=== PATIENT | male | born 1955 | race Caucasian/White ===

== ENCOUNTER 2023-06-01 17:21 | Observation (INO) | payer MEDICARE, SELFPAY ==
[2023-06-01] VITALS (16 sets, daily range): BP systolic 117–176; BP diastolic 74–105; PULSE 67–84; RESP 18–32; TEMP 36.4; O2SAT 89–98; BMI 25.8; BMI 26.8
--- NOTE | 2023-06-01 17:31 | ED.GENADUL1 ---
Documented by User: NEGRITO Ohara 06/01/23 20:20 HPI - General Adult General Chief complaint: Abdominal Pain Stated complaint: ABDOMINAL PAIN Time Seen by Provider: 06/01/23 17:27 Source: patient and friend History of Present Illness HPI narrative: Patient is a 67-year-old male who presents to the Emergency Room with concerns of severe abdominal pain.. patient reports history of bowel obstructions ?4 in the past, surgery with Dr. Montilla. States he developed abdominal pain last night around 8 PM, pain is been constant currently 10/10 with nausea. He denies vomiting, his last bowel movement today was 4:30pm denies blood or mucus. Patient appears weak. brought in by private car via his neighbor who initially took him to [place], but left before being seen after noting the wait at their Facility. Onset (ago): day(s) (1) Radiation: Reports abdomen Severity: severe Quality: Reports aching Pain Consistency: Reports constant Relieving factors: Reports none Exacerbating factors: Reports none Related Data Home Medications Medication Instructions Recorded Confirmed polyethylene glycol 3350 17 4 g PO DAILY 06/01/23 06/01/23 gram/dose oral powder (Gavilax) Allergies Allergy/AdvReac Type Severity Reaction Status Date / Time No Known Drug Allergies Allergy Verified 06/01/23 17:24 Review of Systems ROS Constitutional Denies: fever, chills or change in weight Eyes Denies: change in vision or blurry vision Ears, nose, mouth, and throat Denies: throat pain or neck pain Cardiovascular Denies: chest pain or palpitations Respiratory Denies: shortness of breath Gastrointestinal Reports: abdominal pain and nausea; Denies: vomiting or diarrhea Musculoskeletal Denies: back pain Integumentary/Breast Denies: rash Neurological Denies: headache Psychiatric Denies: anxiety Endocrine Denies: excessive urination [facility] Medical History (Updated 06/01/23 @ 23:49 by Neelam Mendiola RN) Surgical History Family History Brother Family history of myocardial infarction Sister Family history of stroke Social History Within the past year, how often did you have a drink containing alcohol: never Within the past year, how often did you have six or more drinks on one occasion: never Score interpretation: A score less than 4 is consistent with normal alcohol consumption. Smoking status: Never smoker Non-prescribed substance use: denies use Highest level of school completed/degree received: high school graduate Little interest or pleasure in doing things: not at all Feeling down, depressed, or hopeless: not at all Feel stressed/tense/nervous/anxious/difficulty sleeping: not at all Do you think of yourself as: straight/heterosexual Exam Narrative Exam Narrative: Nurses notes and vital signs reviewed and patient is not hypoxic. General: The patient appears in mild to moderate pain and with malaise Skin: Warm, dry, no pallor noted.no evidence of rash Head: Normocephalic, atraumatic Neck: Supple, trachea mid-line, no tenderness, no lymphadenopathy Eye: Pupils are equal, round and reactive to light, EOMI Ears, Nose, Mouth, and Throat: TM are clear, normal light reflex, oral mucosa is moist, no posterior oropharynx erythema or hypertrophy, uvula is mid-line Cardiovascular: Regular Rate and Rhythm Respiratory: Patient is in no distress, no accessory muscle use, lungs are clear to auscultation, no wheezing, rales or rhonchi. Chest Wall: no tenderness Back: non-tender, no CVA tenderness Musculoskeletal: normal ROM, no tenderness, no swelling GI: bowel sounds present but hypoactive, he has a midline abdominal incision with no palpable hernia, notable tenderness in the right lower and left lower quadrants. Slight guarding, no rebound. Neurological: A&O x4 Psychiatric: Cooperative Constitutional Vital Signs, click to edit/add: Last Vital Signs Temp 97.6 F 06/02/23 04:59 Pulse 56 L 06/02/23 04:59 Resp 18 06/02/23 04:59 BP 117/68 06/02/23 04:59 Pulse Ox 94 L 06/02/23 04:59 O2 Del Method Room Air 06/02/23 04:59 O2 Flow Rate 2 06/01/23 21:32 Course Vital Signs Vital signs: Vital Signs Temperature 97.6 F 06/01/23 17:25 Pulse Rate 84 06/01/23 17:25 Respiratory Rate 32 H 06/01/23 17:25 Blood Pressure 156/93 H 06/01/23 17:25 Pulse Oximetry 98 06/01/23 17:25 Oxygen Delivery Method Room Air 06/01/23 17:25 Temperature 97.6 F 06/02/23 04:59 Pulse Rate 56 L 06/02/23 04:59 Respiratory Rate 18 06/02/23 04:59 Blood Pressure 117/68 06/02/23 04:59 Pulse Oximetry 94 L 06/02/23 04:59 Oxygen Delivery Method Room Air 06/02/23 04:59 Oxygen Delivery Flow Rate 2 06/01/23 21:32 Medical Decision Making MDM Narrative Medical decision making narrative: patient presents with last history of bowel obstruction four years ago, prior surgeries. Patient notes pain and presentation of symptoms similar to prior episodes with severe pain lower abdomen currently 10/10 constant unrelenting. Positive nausea but no vomiting. Patient denies fever or chills. Discussed recommendation for CT of the abdomen and pelvis with IV and oral contrast and patientt agreeable. He'll be medicated for pain. patient reevaluated at seven twenty shortly after returning from CT. CT personally reviewed noted for dilated stomach, multiple air-fluid levels, discussed placement of NG tube patient agreeable, noted pain improved with initial IV pain medication but agreeable to a 0.5 mg dose of Dilaudid prior to NG tube placement. Pending CT report before contacting his general surgeon NG tube placement confirmed with chest x-ray, appears appropriate, intermittent suction nearly filled the wall container shortly after application. Patient noticing improvement in his symptoms. We discussed his presentation case and prior surgical history with Dr. Montilla who is familiar with the patient. is agreeable with admission for observation to his service. Patient only takes MiraLAX every other day. Previous surgical intervention was for a food bolus that was stuck in his intestine. Pt was thankful Lab Data Labs: Lab Results 06/01/23 Range/Units 17:25 WBC 9.9 (4.0-11.0) 10^3/uL RBC 5.56 (4.70-6.10) 10^6/uL Hgb 16.8 (14.0-18.0) g/dL Hct 49.2 (42.0-54.0) % MCV 88.5 (80.0-94.0) fL MCH 30.2 (25.9-34.0) pg MCHC 34.1 (29.9-35.2) g/dL RDW 13.0 (11.0-15.0) % Plt Count 376 (150-450) 10^3/uL MPV 8.8 L (9.5-13.5) fL Neut % (Auto) 74.4 (43.0-75.0) % Lymph % (Auto) 17.0 L (20.5-60.0) % Rankin % (Auto) 7.0 (1.7-12.0) % Eos % (Auto) 0.8 L (0.9-7.0) % Baso % (Auto) 0.4 (0.2-2.0) % Neut # (Auto) 7.4 H (1.4-6.5) 10^3/uL Lymph # (Auto) 1.7 (1.2-3.8) 10^3/uL Rankin # (Auto) 0.7 (0.3-0.8) 10^3/uL Eos # (Auto) 0.1 (0.0-0.7) 10^3/uL Baso # (Auto) 0.0 (0.0-0.1) 10^3/uL Abs Immat Gran (auto) 0.04 H (0.00-0.03) 10^3/uL Imm/Tot Granulo (auto) 0.4 (0.0-0.5) % Sodium 138 (136-145) mmol/L Potassium 3.8 (3.5-5.1) mmol/L Chloride 101 (98-107) mmol/L Carbon Dioxide 24.3 (21.0-32.0) mmol/L Anion Gap 16.5 BUN 15.0 (7.0-18.0) mg/dL Creatinine 1.37 H (0.70-1.30) mg/dL Est GFR ( Amer) >60 (>=60) Est GFR (Non-Af Amer) 52 L (>=60) BUN/Creatinine Ratio 10.9 Glucose 116 H (74-106) mg/dL Lactate 2.4 H* (0.4-2.0) mmol/L Calcium 9.6 (8.5-10.1) mg/dL Total Bilirubin 1.2 H (0.2-1.0) mg/dL AST 21 (15-37) U/L ALT 36 (16-63) U/L Alkaline Phosphatase 137 H (46-116) U/L Troponin I High Sens 7.9 (4.0-76.1) pg/mL Total Protein 9.0 H (6.4-8.2) g/dL Albumin 4.2 (3.4-5.0) g/dL Globulin 4.8 g/dL Albumin/Globulin Ratio 0.9 Lipase 62.0 L (73.0-393.0) U/L Imaging Data CT scan - abdomen: Radiologist's impression: Procedure: CT abdomen pelvis w con CT abdomen pelvis w con CLINICAL HISTORY: Lower abdominal pain starting last night. History of small bowel obstruction. Two bowel resections. COMPARISON: 12/15/2014. TECHNIQUE: Axial CT from lung bases through symphysis pubis following the injection of 100 mL of Omnipaque 300 iodinated contrast material. Oral contrast was administered. Coronal and sagittal reconstructions generated. Dose reduction techniques were achieved by using automated exposure control and/or adjustment of mA and/or kV according to patient size and/or use of iterative reconstruction technique. FINDINGS: CT ABDOMEN FINDINGS: Normal heart size. Lung bases chronic scarring, pleural plaques and calcifications overall minimally increased compared to 2015. No acute process seen. Liver with normal size and enhancement except for small chronic and unchanged triangular hypodensity in the posterior right hepatic lobe is similar to 2015, benign. Normal splenic size and enhancement. Normal-sized adrenal glands. Cholecystectomy with stable common duct size. Pancreas is unremarkable. Small nonobstructing left renal mid pole and right lower pole calculi. No obstructing stones or hydronephrosis. A few small scattered renal cysts. Atherosclerotic unfolded aorta without aneurysm. Stomach with relatively prominent air-fluid and contrast distention and up to moderate air fluid distention of the mid small bowel. There is no well-defined singular transition point with gradual decreasing caliber of the mid to distal small bowel. Mild wall thickening and congestion around the dilated bowel loops. An anastomotic line in the right lower quadrant small bowel with no narrowing at this site. Large bowel with a small amount of air fluid distention but mostly decompressed. No drainable ascites. Mild colonic diverticulosis without diverticulitis. No free air. CT PELVIS FINDINGS: Prostatomegaly with heterogeneity. Urinary bladder unremarkable. Tiny fatty left inguinal hernia. Lumbar spondylosis without acute bony process. IMPRESSION: Air fluid distention of the mid small bowel with mild wall thickening and congestion. Overall this is most suggestive of enteritis with small amount of fluid entering the bowel. Small bowel obstruction is possible although perhaps less likely given lack of a focal transition. Close follow-up. No free air. Chronic changes: Nonobstructing renal calculi. Cholecystectomy. Pleural plaques, calcifications and scarring in the lung bases. Electronically authenticated by: WENDY BARNETT Date: 06/01/2023 19:57 Discharge Plan Discharge Chief Complaint: Abdominal Pain Clinical Impression: Ileus, Partial small bowel obstruction Patient Disposition: Admitted as Observation Time of Disposition Decision: 20:20 Condition: Good Discharge Date/Time: 06/01/23 21:00 Documented by User: Roberto Romero MD 06/02/23 07:32 HPI - General Adult General Chief complaint: Abdominal Pain Stated complaint: ABDOMINAL PAIN Time Seen by Provider: 06/01/23 17:27 Related Data Home Medications Medication Instructions Recorded Confirmed polyethylene glycol 3350 17 4 g PO DAILY 06/01/23 06/01/23 gram/dose oral powder (Gavilax) Allergies Allergy/AdvReac Type Severity Reaction Status Date / Time No Known Drug Allergies Allergy Verified 06/01/23 17:24 [facility] Medical History (Updated 06/01/23 @ 23:49 by Neelam Mendiola RN) Surgical History Family History Brother Family history of myocardial infarction Sister Family history of stroke Social History Within the past year, how often did you have a drink containing alcohol: never Within the past year, how often did you have six or more drinks on one occasion: never Score interpretation: A score less than 4 is consistent with normal alcohol consumption. Smoking status: Never smoker Non-prescribed substance use: denies use Highest level of school completed/degree received: high school graduate Little interest or pleasure in doing things: not at all Feeling down, depressed, or hopeless: not at all Feel stressed/tense/nervous/anxious/difficulty sleeping: not at all Do you think of yourself as: straight/heterosexual Exam Constitutional Vital Signs, click to edit/add: Last Vital Signs Temp 97.6 F 06/02/23 04:59 Pulse 56 L 06/02/23 04:59 Resp 18 06/02/23 04:59 BP 117/68 06/02/23 04:59 Pulse Ox 94 L 06/02/23 04:59 O2 Del Method Room Air 06/02/23 04:59 O2 Flow Rate 2 06/01/23 21:32 Course Vital Signs Vital signs: Vital Signs Temperature 97.6 F 06/01/23 17:25 Pulse Rate 84 06/01/23 17:25 Respiratory Rate 32 H 06/01/23 17:25 Blood Pressure 156/93 H 06/01/23 17:25 Pulse Oximetry 98 06/01/23 17:25 Oxygen Delivery Method Room Air 06/01/23 17:25 Temperature 97.6 F 06/02/23 04:59 Pulse Rate 56 L 06/02/23 04:59 Respiratory Rate 18 06/02/23 04:59 Blood Pressure 117/68 06/02/23 04:59 Pulse Oximetry 94 L 06/02/23 04:59 Oxygen Delivery Method Room Air 06/02/23 04:59 Oxygen Delivery Flow Rate 2 06/01/23 21:32 Medical Decision Making MDM Narrative Medical decision making narrative: patient presents with last history of bowel obstruction four years ago, prior surgeries. Patient notes pain and presentation of symptoms similar to prior episodes with severe pain lower abdomen currently 10/10 constant unrelenting. Positive nausea but no vomiting. Patient denies fever or chills. Discussed recommendation for CT of the abdomen and pelvis with IV and oral contrast and patientt agreeable. He'll be medicated for pain. patient reevaluated at seven twenty shortly after returning from CT. CT personally reviewed noted for dilated stomach, multiple air-fluid levels, discussed placement of NG tube patient agreeable, noted pain improved with initial IV pain medication but agreeable to a 0.5 mg dose of Dilaudid prior to NG tube placement. Pending CT report before contacting his general surgeon NG tube placement confirmed with chest x-ray, appears appropriate, intermittent suction nearly filled the wall container shortly after application. Patient noticing improvement in his symptoms. We discussed his presentation case and prior surgical history with Dr. Montilla who is familiar with the patient. is agreeable with admission for observation to his service. Patient only takes MiraLAX every other day. Previous surgical intervention was for a food bolus that was stuck in his intestine. Pt was thankful I, Dr Romero, have reviewed the above progress note and course of action in the ER; agree with the above. I have personally seen and evaluated this patient, gone over history and physical, and discussed disposition and treatment plan with the patient. Lab Data Labs: Lab Results 06/01/23 Range/Units 17:25 WBC 9.9 (4.0-11.0) 10^3/uL RBC 5.56 (4.70-6.10) 10^6/uL Hgb 16.8 (14.0-18.0) g/dL Hct 49.2 (42.0-54.0) % MCV 88.5 (80.0-94.0) fL MCH 30.2 (25.9-34.0) pg MCHC 34.1 (29.9-35.2) g/dL RDW 13.0 (11.0-15.0) % Plt Count 376 (150-450) 10^3/uL MPV 8.8 L (9.5-13.5) fL Neut % (Auto) 74.4 (43.0-75.0) % Lymph % (Auto) 17.0 L (20.5-60.0) % Rankin % (Auto) 7.0 (1.7-12.0) % Eos % (Auto) 0.8 L (0.9-7.0) % Baso % (Auto) 0.4 (0.2-2.0) % Neut # (Auto) 7.4 H (1.4-6.5) 10^3/uL Lymph # (Auto) 1.7 (1.2-3.8) 10^3/uL Rankin # (Auto) 0.7 (0.3-0.8) 10^3/uL Eos # (Auto) 0.1 (0.0-0.7) 10^3/uL Baso # (Auto) 0.0 (0.0-0.1) 10^3/uL Abs Immat Gran (auto) 0.04 H (0.00-0.03) 10^3/uL Imm/Tot Granulo (auto) 0.4 (0.0-0.5) % Sodium 138 (136-145) mmol/L Potassium 3.8 (3.5-5.1) mmol/L Chloride 101 (98-107) mmol/L Carbon Dioxide 24.3 (21.0-32.0) mmol/L Anion Gap 16.5 BUN 15.0 (7.0-18.0) mg/dL Creatinine 1.37 H (0.70-1.30) mg/dL Est GFR ( Amer) >60 (>=60) Est GFR (Non-Af Amer) 52 L (>=60) BUN/Creatinine Ratio 10.9 Glucose 116 H (74-106) mg/dL Lactate 2.4 H* (0.4-2.0) mmol/L Calcium 9.6 (8.5-10.1) mg/dL Total Bilirubin 1.2 H (0.2-1.0) mg/dL AST 21 (15-37) U/L ALT 36 (16-63) U/L Alkaline Phosphatase 137 H (46-116) U/L Troponin I High Sens 7.9 (4.0-76.1) pg/mL Total Protein 9.0 H (6.4-8.2) g/dL Albumin 4.2 (3.4-5.0) g/dL Globulin 4.8 g/dL Albumin/Globulin Ratio 0.9 Lipase 62.0 L (73.0-393.0) U/L Critical Care Time Critical Care Time Attestation: I, Dr Romero, have reviewed the above progress note and course of action in the ER; agree with the above. I have personally seen and evaluated this patient, gone over history and physical, and discussed disposition and treatment plan with the patient. Discharge Plan Discharge Chief Complaint: Abdominal Pain Clinical Impression: Ileus, Partial small bowel obstruction Patient Disposition: Admitted as Observation Time of Disposition Decision: 20:20 Condition: Good Discharge Date/Time: 06/01/23 21:00
[2023-06-01 17:39] LABS: Basophils Percent Auto 0.4 % (0.2-2.0); Eosinophils Absolute Auto 0.1 10^3/uL (0.0-0.7); Eosinophils Percent Auto 0.8 % (0.9-7.0); Hematocrit 49.2 % (42.0-54.0); Hemoglobin 16.8 g/dL (14.0-18.0); Immature Granulocytes Abs Auto 0.04 10^3/uL (0.00-0.03); Immature Granulocytes Pct Auto 0.4 % (0.0-0.5); Lymphocytes Absolute Auto 1.7 10^3/uL (1.2-3.8); Mean Corpuscular HGB Conc 34.1 g/dL (29.9-35.2); Mean Corpuscular Hemoglobin 30.2 pg (25.9-34.0); Mean Corpuscular Volume 88.5 fL (80.0-94.0); Mean Platelet Volume 8.8 fL (9.5-13.5); Monocytes Absolute Auto 0.7 10^3/uL (0.3-0.8); Neutrophils Absolute Auto 7.4 10^3/uL (1.4-6.5); Neutrophils Percent Auto 74.4 % (43.0-75.0); Platelet Count 376 10^3/uL (150-450); Red Blood Count 5.56 10^6/uL (4.70-6.10); White Blood Count 9.9 10^3/uL (4.0-11.0)
[2023-06-01] MEDS: 0.9 % SODIUM CHLORIDE 1,000 ML 999 ML IV ×2 (17:50→19:41)
[2023-06-01] MEDS: HYDROMORPHONE HCL 1 MG/ML CARTRIDGE IVP (17:51)
[2023-06-01] MEDS: ONDANSETRON PF 4 MG/2 ML VIAL IV (17:51)
[2023-06-01 17:55] LABS: Alanine Aminotransferase 36 U/L (16-63); Albumin Globulin Ratio 0.9; Albumin Level 4.2 g/dL (3.4-5.0); Alkaline Phosphatase 137 U/L (46-116); Anion Gap 16.5; Aspartate Amino Transferase 21 U/L (15-37); BUN Creatinine Ratio 10.9; Bilirubin Total 1.2 mg/dL (0.2-1.0); Calcium 9.6 mg/dL (8.5-10.1); Carbon Dioxide 24.3 mmol/L (21.0-32.0); Chloride 101 mmol/L (98-107); Estimated GFR (African America >60 (>=60); Estimated GFR (Non-African Ame 52 (>=60); Globulin 4.8 g/dL; Glucose 116 mg/dL (74-106); Potassium 3.8 mmol/L (3.5-5.1); Sodium 138 mmol/L (136-145)
[2023-06-01 18:00] LABS: Troponin I High Sensitivity 7.9 pg/mL (4.0-76.1)
[2023-06-01 18:01] LABS: Lactate/Lactic Acid 2.4 mmol/L (0.4-2.0)
--- NOTE | 2023-06-01 19:19 | XR_ITS ---
The [address] [address] Patient Name: XAVI NAGEL MRN: [id number] date: 1955 Sex: M Assigned Patient Location: ER Current Patient Location: [place] Accession/Order Number: [id number] Exam Date: 06/01/2023 20:10 Report Date: 06/01/2023 21:17 At the request of: RIGOBERTO RAM Procedure: XR chest 1V EXAM: XR chest 1V HISTORY: NG tube placement COMPARISON: Chest CT 10/01/2013 TECHNIQUE: AP portable study FINDINGS: Calcified pleural plaques are again noted bilaterally. There are fibrotic changes of both lung bases. The visualized lung garsia are otherwise clear. The cardiovascular silhouette is normal. A nasogastric tube traverses the thorax and enters the stomach. The sidehole is within the stomach. XR/XR chest 1V IMPRESSION: Satisfactory nasogastric tube placement. Electronically authenticated by: Zac LEE Date: 06/01/2023 21:17
[2023-06-01] MEDS: HYDROMORPHONE HCL 0.5 MG/0.5 ML SYRINGE IV (19:40)
--- NOTE | 2023-06-01 20:33 | PC.NURSE ---
patient placed on 2l NEGRITO GOSS notified. 97% pulse ox
[2023-06-02] MEDS: 0.9 % SODIUM CHLORIDE 1,000 ML 100 ML IV ×3 (02:00→21:12)
[2023-06-02 04:59] VITALS: BP 117/68; PULSE 56; RESP 18; TEMP 36.4; O2SAT 94
[2023-06-02 06:09] LABS: Anion Gap 9.6; BUN Creatinine Ratio 13.8; Carbon Dioxide 28.4 mmol/L (21.0-32.0); Chloride 106 mmol/L (98-107); Estimated GFR (African America >60 (>=60); Estimated GFR (Non-African Ame >60 (>=60); Glucose 108 mg/dL (74-106); Sodium 140 mmol/L (136-145)
[2023-06-02 06:17] LABS: Lactate/Lactic Acid 0.9 mmol/L (0.4-2.0)
--- NOTE | 2023-06-02 06:22 | P.HP_ITS ---
H&P: HPI History of Present Illness Chief complaint: ABDOMINAL PAIN SBO NG PLACED ILEUS Narrative: Moi Munoz is a 67-year-old male well known to me that presented to the Emergency Department last evening with complaints of acute abdominal pain beginning night described as 9-10 nausea but no emesis. Patient has a prior history of having had a bowel resection for SBO ?2 two thousand thirteen two thousand fifteen by me. 1st SBO was due to food bolus.when he 1st came in nasogastric tube was placed and he filled a container with 1200 mL of bilious material. This morning the canister it contains about 200 mL.he feels much better. Denies any pain this morning. He has CT scan of the abdomen and pelvis with IV and oral contrast which showed no transition point or acute SBO but probable ileus. He had multiple air-fluid levels. CT scan was reviewed by me. He denies any melena hematochezia indigestion heartburn hematemesis weight loss or weight gain. 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 He denies any other medical complaints. Review of Systems ROS Status of ROS 10 or more systems reviewed and unremarkable except as noted in history and below [facility] Medical History (Updated 06/01/23 @ 23:49 by Neelam Mendiola RN) Surgical History Family History Brother Family history of myocardial infarction Sister Family history of stroke Social History Within the past year, how often did you have a drink containing alcohol: never Within the past year, how often did you have six or more drinks on one occasion: never Score interpretation: A score less than 4 is consistent with normal alcohol consumption. Smoking status: Never smoker Non-prescribed substance use: denies use Highest level of school completed/degree received: high school graduate Little interest or pleasure in doing things: not at all Feeling down, depressed, or hopeless: not at all Feel stressed/tense/nervous/anxious/difficulty sleeping: not at all Do you think of yourself as: straight/heterosexual Meds Home Medications and Allergies Home Medications Medication Instructions Recorded Confirmed Type polyethylene glycol 3350 17 4 g PO DAILY 06/01/23 06/01/23 History gram/dose oral powder (Gavilax) Allergies Allergy/AdvReac Type Severity Reaction Status Date / Time No Known Drug Allergies Allergy Verified 06/01/23 17:24 Exam Constitutional Vital Signs, click to edit/add: Last Vital Signs Temp 97.6 F 06/02/23 04:59 Pulse 56 L 06/02/23 04:59 Resp 18 06/02/23 04:59 BP 117/68 06/02/23 04:59 Pulse Ox 94 L 06/02/23 04:59 O2 Del Method Room Air 06/02/23 04:59 O2 Flow Rate 2 06/01/23 21:32 Documenting provider has reviewed patient's vital signs: yes Common normals: no apparent distress, average body habitus, oriented x3, healthy appearing, alert and well nourished HENOR Common normals: normocephalic, head/scalp atraumatic and oropharynx normal Other: nasogastric tube in place with minimal drainage this morning Respiratory Common normals: normal respiratory effort and clear to auscultation bilaterally Cardio Common normals: regular rate, regular rhythm and no murmurs GI Inspection: normal to inspection Auscultation: normoactive bowel sounds Palpation: soft Neuro Common normals: oriented x3, CN's II-XII intact bilaterally and moves all extremities Results Labs Labs: Short CBC 06/01/23 Range/Units 17:25 WBC 9.9 (4.0-11.0) 10^3/uL Hgb 16.8 (14.0-18.0) g/dL Hct 49.2 (42.0-54.0) % Plt Count 376 (150-450) 10^3/uL BMP 06/01/23 06/02/23 17:25 05:52 Sodium 138 140 Potassium 3.8 4.0 Chloride 101 106 Carbon Dioxide 24.3 28.4 BUN 15.0 13.0 Creatinine 1.37 H 0.94 Glucose 116 H 108 H Calcium 9.6 8.0 L Liver Function 06/01/23 Range/Units 17:25 Total Bilirubin 1.2 H (0.2-1.0) mg/dL AST 21 (15-37) U/L ALT 36 (16-63) U/L Alkaline Phosphatase 137 H (46-116) U/L Albumin 4.2 (3.4-5.0) g/dL Assessment and Plan Assessment and Plan (1) Ileus: (2) Partial small bowel obstruction: Plan continue nasogastric suction to low intermittent suction today and keep nothing by mouth and check abdominal x-ray tomorrow. Recheck lactate level which was slightly elevated at 2.4 yesterday and electrolytes. Encourage ambulation.
[2023-06-02] MEDS: ENOXAPARIN SODIUM 40 MG/0.4 ML SYRINGE SUBQ (09:38)
[2023-06-02 14:13] VITALS: BP 116/73; PULSE 66; RESP 16; TEMP 36.5; O2SAT 92
[2023-06-02 20:00] VITALS: RESP 18
[2023-06-02 21:00] VITALS: BP 135/80; PULSE 60; RESP 18; TEMP 36.8; O2SAT 91
[2023-06-03] MEDS: KETOROLAC TROMETHAMINE 30 MG/ML VIAL IVP
[2023-06-03 05:15] VITALS: BP 119/72; PULSE 67; RESP 18; TEMP 36.6; O2SAT 92
--- NOTE | 2023-06-03 06:27 | XR_ITS ---
The [address] [address] Patient Name: XAVI NAGEL MRN: [id number] date: 1955 Sex: M Assigned Patient Location: [place] Current Patient Location: [place] Accession/Order Number: [id number] Exam Date: 06/03/2023 05:35 Report Date: 06/03/2023 12:13 At the request of: JOHN HATCH Procedure: XR abdomen min 2V EXAM: XR abdomen min 2V HISTORY: Abdominal pain. COMPARISON: CT dated 06/01/2023 FINDINGS: There are calcified pleural plaques at the lung bases. An NG tube is identified with its tip in the stomach. There are cholecystectomy clips in the gallbladder fossa. There are distended air-filled loops of small bowel with air-fluid levels. A small amount of air is observed within the colon. No acute osseous abnormality is detected. No pathologic calcification or abnormal discrete soft tissue mass is seen. Degenerative changes are observed as well. XR/XR abdomen min 2V IMPRESSION: Findings are again most consistent with a partial small bowel construction versus ileus. Similar appearance to the prior exam. Electronically authenticated by: ADAN LAZO Date: 06/03/2023 12:13
[2023-06-03] MEDS: HYDROMORPHONE HCL 0.5 MG/0.5 ML SYRINGE IV (06:30)
[2023-06-03] MEDS: ONDANSETRON PF 4 MG/2 ML VIAL IV (06:40)
[2023-06-03] MEDS: 0.9 % SODIUM CHLORIDE 1,000 ML 100 ML IV ×2 (08:17→18:07)
[2023-06-03] MEDS: ENOXAPARIN SODIUM 40 MG/0.4 ML SYRINGE SUBQ (10:43)
[2023-06-03] MEDS: BISACODYL 10 MG RECTAL SUPPOSITORY 20 MG PR (10:43)
[2023-06-03 13:55] VITALS: BP 129/70; PULSE 69; RESP 16; TEMP 36.9; O2SAT 94
--- NOTE | 2023-06-03 17:55 | PM.GSPN ---
Progress Note: A&P Assessment and Plan (1) Ileus: (2) Partial small bowel obstruction: Plan small bowel series tomorrow keep npo and ng to suction Subjective Subjective Patient reports: still having pain and flatus Interval history: still having pain intermittently in the lower abdomen; had to be medicated with Dilaudid during the night. Patient is passing flatus and a small bowel movement still feels bloated. Nasogastric tube with less than four hundred out since 7 AM. [place] [address] XRay Report Signed Patient: XAVI NAGEL MR#: [id number] : 1955 Acct:[id number] Age/Sex: 67 / M ADM Date: 06/01/23 Loc: [place] 230-[address]: Herrera Meade M.D. Ordering Physician: Ramesh Montilla M.D. Date of Service: 06/03/23 Procedure(s): XR abdomen min 2V Accession Number(s): [id number] cc: Ramesh Montilla M.D.; Physician,Non-Staff Emy~ ? The [facility] ?? ? [address] [place] [address] ?? ? [place] [id number] ? Patient Name: XAVI? SHONA ? MRN: [id number]? ? date: 1955? ? Sex: M Assigned Patient Location: [place] Current Patient Location: [place] Accession/Order Number: [id number] Exam Date: 06/03/2023? 05:35? ? Report Date: 06/03/2023? 12:13 ? At the request of: RAMESH? MAMIE? ? Procedure:? XR abdomen min 2V ? EXAM: XR abdomen min 2V ? HISTORY: Abdominal pain. ? COMPARISON: CT dated 06/01/2023 ? FINDINGS: There are calcified pleural plaques at the lung bases. An NG tube is ? identified with its tip in the stomach. There are cholecystectomy clips in the ? gallbladder fossa. There are distended air-filled loops of small bowel with air-fluid levels. A small amount of air is observed within the colon. No acute ? osseous abnormality is detected. No pathologic calcification or abnormal discrete soft tissue mass is seen. Degenerative changes are observed as well. ? XR/XR abdomen min 2V IMPRESSION: Findings are again most consistent with a partial small bowel construction versus ileus. Similar appearance to the prior exam. ? ? Electronically authenticated by: CHRISTOPHER LAZO ? Date: 06/03/2023? 12:13 ? Dictated By: Paolo Lazo M.D. Signed By: 06/03/23 1216 DD/ 1213 TD/TT:? Traffic Reporter: Abdominal x-ray reviewed Exam Constitutional Vital Signs, click to edit/add: Last Vital Signs Temp 98.4 F 06/03/23 13:55 Pulse 69 06/03/23 13:55 Resp 16 06/03/23 13:55 BP 129/70 H 06/03/23 13:55 Pulse Ox 94 L 06/03/23 13:55 O2 Del Method Room Air 06/03/23 13:55 O2 Flow Rate 2 06/01/23 21:32 Documenting provider has reviewed patient's vital signs: yes Common normals: no apparent distress and oriented x3 GI Inspection: normal to inspection Auscultation: hypoactive bowel sounds Palpation: tender Details: RLQ
--- NOTE | 2023-06-03 17:59 | FL_ITS ---
The [address] [address] Patient Name: XAVI NAGEL MRN: [id number] date: 1955 Sex: M Assigned Patient Location: MS Current Patient Location: MS Accession/Order Number: [id number] Exam Date: 06/03/2023 07:13 Report Date: 06/04/2023 08:21 At the request of: JOHN HATCH Procedure: FL small bowel follow through EXAMINATION: FL small bowel follow through HISTORY: ileus vs sbo COMPARISON: No relevant comparison available. TECHNIQUE: Small bowel series was performed in the usual manner. No senior communications specialist abdominal radiograph was performed. FINDINGS: Oral contrast passes readily through the small and large bowel and is present within the rectum at one hour. FL/FL small bowel follow through IMPRESSION: 1. No bowel obstruction or ileus. Electronically authenticated by: PETTY TINEO Date: 06/04/2023 08:21
[2023-06-03 20:08] VITALS: BP 135/80; PULSE 62; RESP 18; TEMP 36.8; O2SAT 91
[2023-06-03] MEDS: BENZOCAINE/MENTHOL 1 EACH LOZENGE 1 LOZENGE PO (20:43)
[2023-06-04] MEDS: 0.9 % SODIUM CHLORIDE 1,000 ML 100 ML IV ×2 (02:37→13:03)
[2023-06-04] MEDS: KETOROLAC TROMETHAMINE 30 MG/ML VIAL IVP (04:07)
[2023-06-04 04:10] VITALS: BP 142/80; PULSE 83; RESP 18; TEMP 36.8; O2SAT 94
[2023-06-04 08:00] VITALS: PULSE 82; RESP 18
[2023-06-04 14:00] VITALS: BP 158/75; PULSE 73; RESP 18; TEMP 36.5; O2SAT 95
--- NOTE | 2023-06-04 16:24 | CM.NOTE ---
Medicare Outpatient Observation Notice discussed with pt, pt verbalizes understanding and signs paper. Original given to pt and copy placed on pt's chart.
--- NOTE | 2023-06-04 17:20 | PM.GSPN ---
Progress Note: A&P Assessment and Plan (1) Ileus: Assessment and Plan: resolved; (2) Partial small bowel obstruction: Assessment and Plan: see # 1 Plan begin full liquid diet, discharge to home if tolerates; continue low residue diet for 1 week, then gradually resume regular diet; follow up with Dr Montilla. Subjective Subjective Patient reports: feels better Interval history: no N/V; denies abd pain; had sbft this am with liquid bms afterward; feels hungry. Exam Narrative Exam Narrative: abd: soft, normal bs, nontender, nondistended, no masses or HSM Constitutional Vital Signs, click to edit/add: Last Vital Signs Temp 97.7 F 06/04/23 14:00 Pulse 73 06/04/23 14:00 Resp 18 06/04/23 14:00 BP 158/75 H 06/04/23 14:00 Pulse Ox 95 06/04/23 14:00 O2 Del Method Room Air 06/04/23 14:00 O2 Flow Rate 2 06/01/23 21:32
--- NOTE | 2023-06-04 18:31 | PC.NURSE ---
Patient tolerated applesauce, orange jello, and unsweetened iced tea well. No complaints of pain or discomfort.
--- NOTE | 2023-06-05 15:10 | CM.DCFOLLOWU ---
First attempt at d/c follow up call. No answer.
--- NOTE | 2023-06-06 13:04 | CM.DCFOLLOWU ---
Second discharge call back attempted today-no answer.
--- NOTE | 2023-06-11 15:09 | CM.DCFOLLOWU ---
3 discharge follow up calls were attempted, no answer.
== END 2023-06-04 07:55 | disposition home or self-care (01) ==
LOC: ER 20:20 → MS 21:05
PROVIDERS: Admitting Provider Surgery; Emergency Provider Emergency Medicine; Visit Provider Internal Medicine
DX: K56.690 Other partial intestinal obstruction (principal); Z90.49 Acquired absence of other specified parts of digestive tract
CPT/HCPCS: 36415; 71045; 74019; 74177; 74248; 80048; 80053; 81003; 83605; 83690; 84484; 85025; 96372; 96374; 96375; 96376; 99285; G0378; J1170; Q9963; Q9966; Q9967